=== PATIENT | male | born 1945 | race Caucasian/White ===

== ENCOUNTER 2019-04-09 08:17 | Outpatient (CLI) | payer OTHER | END 2019-04-09 21:06 | disposition home or self-care (01) | LOC: SLB 08:17 | PROVIDERS: ATTEND Family Medicine | DX: M41.84 Other forms of scoliosis, thoracic region (principal); M47.814 Spondylosis without myelopathy or radiculopathy, thoracic region; M81.0 Age-related osteoporosis without current pathological fracture | CPT/HCPCS: 71046-TC ==

== ENCOUNTER 2020-06-29 10:45 | Outpatient (CLI) | payer OTHER | END 2020-06-29 20:09 | disposition home or self-care (01) | LOC: SRD 10:45 | PROVIDERS: ATTEND Family Medicine | DX: M16.11 Unilateral primary osteoarthritis, right hip (principal) | CPT/HCPCS: 73502 ==

== ENCOUNTER 2021-09-02 15:44 | Outpatient (CLI) | payer OTHER | END 2021-09-02 21:15 | disposition home or self-care (01) | LOC: SRD 15:44 | PROVIDERS: ATTEND Family Medicine | DX: I10 Essential (primary) hypertension (principal) | CPT/HCPCS: 71046-TC ==